=== PATIENT | male | born 1965 | race Caucasian/White ===

== ENCOUNTER 2017-08-16 10:28 | Observation (INO) | payer OTHER ==
[~2017-08-16] VITALS: Ht 180.3 cm; Wt 119.0 kg
[~2017-08-16 10:28] MED LIST: ALB0.5UD IH; AMLO2.5T PO; ATOR20TA PO; BUDE10.2 INH; CETI10TA15 PO; CLON-527 PO; ENOX100S3 SQ; GUAI200T5 PO; HYDR-3972 PO; LAMO100T65 PO; MONT10TA24 PO; PRAZ2CAP2 PO; RISP0.5T3 PO; SENN8.6T61 PO; SERT100T10 PO; SILD100T PO; SPIIN INH; TEST2.5G5 TD; WARF2TAB7 PO; ZOLP10TA5 PO
[2017-08-16 11:18] LABS: BASOPHILS # (AUTO) 0.1 X10'3 (0-0.2); BASOPHILS % (AUTO) 0.7 % (0-1); EOSINOPHILS # (AUTO) 0.2 X10'3 (0-0.9); EOSINOPHILS % (AUTO) 2.6 % (0-6); HEMATOCRIT 28.3 % (42.0-52.0); HEMOGLOBIN 9.7 g/dl (14.0-17.9); LYMPHOCYTES # (AUTO) 1.7 X10'3 (1.1-4.8); LYMPHOCYTES % (AUTO) 21.2 % (21-51); MEAN CORPUSCULAR HEMOGLOBIN 31.2 PG (27.0-31.0); MEAN CORPUSCULAR HGB CONC 34.2 % (33.0-36.5); MEAN PLATELET VOLUME 6.2 FL (7.4-10.4); MONOCYTES # (AUTO) 0.3 X10'3 (0-0.9); MONOCYTES % (AUTO) 3.8 % (2-12); NEUTROPHILS # (AUTO) 5.8 X10'3 (1.8-7.7); NEUTROPHILS % (AUTO) 71.7 % (42-75); PLATELET COUNT 358 X10'3 (140-440); RED BLOOD COUNT 3.11 X10'6 (4.70-6.10); RED CELL DISTRIBUTION WIDTH 14.8 % (11.5-14.5)
[2017-08-16] MEDS ORDERED: phytonadione inj. 10 MG in normal saline 100ml IV soln 99 ML IV ONE (11:20)
[2017-08-16 11:29] LABS: INR 2.9 INR; PARTIAL THROMBOPLASTIN TIME 41 SECONDS (22-32); PROTHROMBIN TIME 29.1 SECONDS (9.0-12.0)
[2017-08-16 11:33] LABS: ALANINE AMINOTRANSFERASE 33 U/L (12-78); ALBUMIN/GLOBULIN RATIO 0.9 (1.1-1.5); ALKALINE PHOSPHATASE 72 IU/L (46-116); ANION GAP 10 (8-16); ASPARTATE AMINO TRANSFERASE 29 U/L (10-37); BILIRUBIN,TOTAL 0.7 MG/DL (0.1-1.0); BLOOD UREA NITROGEN 7 MG/DL (7-18); BUN/CREATININE RATIO 10.8 (5.4-32.0); CALCIUM 7.8 MG/DL (8.5-10.1); CHLORIDE 109 MMOL/L (99-107); CREATININE 0.65 MG/DL (0.60-1.10); GLUCOSE 87 MG/DL (70-104); POTASSIUM 3.5 MMOL/L (3.5-5.1); SODIUM 143 MMOL/L (135-145); TOTAL CARBON DIOXIDE 24.1 MMOL/L (24-32); TOTAL PROTEIN 6.4 G/DL (6.4-8.2); eGFR > 90 ML/MIN
[2017-08-16] MEDS ORDERED: ASPI81TA30 PO (12:04)
[2017-08-16] MEDS ORDERED: ALPR-624 PO (12:04)
[2017-08-16] MEDS ORDERED: RANI150T8 PO (12:04)
[2017-08-16] MEDS ORDERED: ATOR-2 PO (12:04)
[2017-08-16] MEDS ORDERED: SERT50TA PO (12:04)
[2017-08-16] MEDS ORDERED: HYDR-565 PO (12:04)
[2017-08-16] MEDS ORDERED: CHOL200016 PO (12:04)
[2017-08-16] MEDS ORDERED: ZOLP10TA5 PO (12:04)
[2017-08-16] MEDS ORDERED: NORMAL SALINE IV ONE (12:20)
[2017-08-16] MEDS ORDERED: PHYTONADIONE IV ONE (12:20)
[2017-08-16] MEDS ORDERED: magnesium 4gm in 100ml NS 100 ML IV PRN (13:30)
[2017-08-16] MEDS ORDERED: mag hydrox/Alum hydrox/simeth 30ml oral suspension PO PRN (13:30)
[2017-08-16] MEDS ORDERED: potassium Cl 40MEQ/NS 500ml 500 ML IV PRN ×2 (13:30)
[2017-08-16] MEDS ORDERED: magnesium 2GM in 50ml NS 50 ML IV PRN (13:30)
[2017-08-16] MEDS ORDERED: acetaminophen 325mg tablet PO PRN ×2 (13:30)
[2017-08-16] MEDS ORDERED: potassium Cl 20 mEq SR tablet PO PRN ×2 (13:30)
[2017-08-16] MEDS ORDERED: magnesium Cl slow-release 64mg tablet PO PRN (13:30)
[2017-08-16] MEDS ORDERED: ondansetron/PF 4mg/2ml inj IV PRN (13:30)
[2017-08-16] MEDS ORDERED: magnesium hydroxide 30ml (MOM) UD suspension PO PRN (13:30)
[2017-08-16 13:35] VITALS: BP 133/84
[2017-08-16] MEDS ORDERED: albuterol 2.5 MG/3 ML nebule NEB PRN (13:40)
[2017-08-16] MEDS: normal saline 1000ml 1,000 ML IV SCH ×2 (15:04→16:09)
[2017-08-16 15:09] LABS: HEMOGLOBIN 9.9 g/dl (14.0-17.9); MEAN CORPUSCULAR HGB CONC 33.9 % (33.0-36.5); MEAN CORPUSCULAR VOLUME 91.3 FL (78-98); MEAN PLATELET VOLUME 6.3 FL (7.4-10.4); PLATELET COUNT 392 X10'3 (140-440); RED BLOOD COUNT 3.18 X10'6 (4.70-6.10); WHITE BLOOD COUNT 7.1 X10'3 (4.5-11.0)
[2017-08-16] MEDS ORDERED: GUAI600T45 PO (17:37)
[2017-08-16] MEDS ORDERED: guaiFENesin 200 MG/10 ML oral syrup UD cup PO PRN (18:00)
[2017-08-16 19:00] VITALS: BP 145/82
[2017-08-16] MEDS: ALPRAZolam 0.5mg tablet PO SCH (19:15)
[2017-08-16 20:45] LABS: HEMATOCRIT 36.1 % (42.0-52.0); HEMOGLOBIN 12.2 g/dl (14.0-17.9); MEAN CORPUSCULAR HEMOGLOBIN 30.8 PG (27.0-31.0); MEAN CORPUSCULAR HGB CONC 33.7 % (33.0-36.5); MEAN CORPUSCULAR VOLUME 91.4 FL (78-98); MEAN PLATELET VOLUME 6.6 FL (7.4-10.4); PLATELET COUNT 433 X10'3 (140-440); RED BLOOD COUNT 3.95 X10'6 (4.70-6.10); RED CELL DISTRIBUTION WIDTH 15.1 % (11.5-14.5); WHITE BLOOD COUNT 8.6 X10'3 (4.5-11.0)
[2017-08-16] MEDS ORDERED: temazepam 15mg capsule PO PRN (21:00)
[2017-08-16] MEDS ORDERED: lamoTRIgine 25mg tablet PO SCH (21:00)
[2017-08-16] MEDS ORDERED: zolpidem 5mg tablet PO SCH (21:00)
[2017-08-16] MEDS ORDERED: prazosin 1mg capsule PO SCH (21:00)
[2017-08-16] MEDS ORDERED: clonazePAM 1mg tablet PO SCH (21:00)
[2017-08-16 22:00] VITALS: BP 133/69
[2017-08-17] MEDS: normal saline 1000ml 1,000 ML IV SCH (01:37)
[2017-08-17 01:56] LABS: HEMATOCRIT 31.8 % (42.0-52.0); HEMOGLOBIN 10.8 g/dl (14.0-17.9); MEAN CORPUSCULAR HEMOGLOBIN 30.7 PG (27.0-31.0); MEAN CORPUSCULAR HGB CONC 33.9 % (33.0-36.5); MEAN CORPUSCULAR VOLUME 90.6 FL (78-98); MEAN PLATELET VOLUME 6.7 FL (7.4-10.4); PLATELET COUNT 393 X10'3 (140-440); RED BLOOD COUNT 3.51 X10'6 (4.70-6.10); WHITE BLOOD COUNT 7.4 X10'3 (4.5-11.0)
[2017-08-17 02:00] VITALS: BP 108/74
[2017-08-17 02:00] LABS: ALBUMIN 3.1 G/DL (3.4-5.0); ANION GAP 7 (8-16); BLOOD UREA NITROGEN 11 MG/DL (7-18); BUN/CREATININE RATIO 16.2 (5.4-32.0); CALCIUM 8.4 MG/DL (8.5-10.1); CHLORIDE 109 MMOL/L (99-107); CREATININE 0.68 MG/DL (0.60-1.10); GLUCOSE 102 MG/DL (70-104); POTASSIUM 3.6 MMOL/L (3.5-5.1); SODIUM 142 MMOL/L (135-145); TOTAL CARBON DIOXIDE 25.9 MMOL/L (24-32); eGFR > 90 ML/MIN
[2017-08-17 02:03] LABS: INR 1.2 INR; PARTIAL THROMBOPLASTIN TIME 30 SECONDS (22-32); PROTHROMBIN TIME 12.7 SECONDS (9.0-12.0)
[2017-08-17 06:00] VITALS: BP 137/70
[2017-08-17] MEDS: ALPRAZolam 0.5mg tablet PO SCH (07:36)
[2017-08-17] MEDS ORDERED: montelukast 10mg tablet PO SCH (08:00)
[2017-08-17] MEDS ORDERED: fluticasone/vilanterol 200mcg/25mcg inhaler IH SCH (08:00)
[2017-08-17] MEDS ORDERED: clonazePAM 1mg tablet PO SCH (08:00)
[2017-08-17] MEDS ORDERED: lamoTRIgine 25mg tablet PO SCH (08:00)
[2017-08-17] MEDS ORDERED: ipratropium 0.5 MG/2.5ML nebule NEB SCH (08:00)
[2017-08-17] MEDS ORDERED: atorvastatin 20mg tablet PO SCH (08:00)
[2017-08-17] MEDS ORDERED: cetirizine 10mg tablet PO SCH (08:00)
[2017-08-17] MEDS ORDERED: K and/or MAG REPLACEMENT MC SCH (08:00)
[2017-08-17] MEDS ORDERED: amLODIPine 2.5mg tablet PO SCH (08:00)
[2017-08-17] MEDS ORDERED: sertraline 50mg tablet PO SCH (08:00)
== END 2017-08-17 08:10 | disposition left against medical advice (07) ==
LOC: ER 10:29 → ED HOLD 13:30 → PCU 3S 18:45
PROVIDERS: ADMIT Family Medicine; ATTEND Family Medicine
DX: R10.32 Left lower quadrant pain (principal); M79.81 Nontraumatic hematoma of soft tissue; J44.9 Chronic obstructive pulmonary disease, unspecified; I25.10 Atherosclerotic heart disease of native coronary artery without angina pectoris; Z85.118 Personal history of other malignant neoplasm of bronchus and lung; Z95.2 Presence of prosthetic heart valve; Z79.01 Long term (current) use of anticoagulants
CPT/HCPCS: 36415; 36430; 80048; 80053; 83735; 85025; 85027; 85610; 85730; 86885; 86900; 86901; 87070; 93005; 94640; 94760; 96361; 96365; 99285; A4421; A6258; G0378; J3430; J7030; J7040; P9059